=== PATIENT | female | born 1960 | race Caucasian/White ===

== ENCOUNTER 2016-11-20 11:51 | Inpatient (IN) | payer MEDICAID ==
[~2016-11-20] VITALS: Ht 149.9 cm; Wt 81.2 kg
[2016-11-20 13:24] LABS: BASOPHIL % 0.5 % (0-2)
[2016-11-20 13:25] LABS: PLATELET COUNT 422 x10^3mcL (130-400)
[2016-11-20 13:28] LABS: CALCIUM 8.7 mg/dL (8.5-10.1); CARBON DIOXIDE 26.9 mmol/L (21-32); CHLORIDE SERUM 103 mmol/L (98-107); CREATININE SERUM 0.6 mg/dL (0.6-1.0); GFR1 > 60 mL/min; GLUCOSE SERUM 151 mg/dL (74-106); POTASSIUM SERUM 3.5 mmol/L (3.5-5.1); SODIUM SERUM 140 mmol/L (136-145)
[2016-11-20 13:33] LABS: ALBUMIN 3.7 g/dL (3.4-5.0); ALKALINE PHOSPHATASE 128 U/L (46-116); ALT/SGPT 35 U/L (14-59); AST/SGOT 25 U/L (15-37); BILIRUBIN TOTAL 0.2 mg/dL (0.20-1.00); TOTAL PROTEIN, SERUM 8.1 g/dL (6.4-8.2)
[2016-11-20 15:45] LABS: CHOLESTEROL/HDL RATIO 3.5; MAGNESIUM 1.9 mg/dL (1.8-2.4); PHOSPHOROUS 3.8 mg/dL (2.5-4.9)
[2016-11-20] MEDS ORDERED: ENALAPRIL MALE2.5 MG (15:58)
[2016-11-20 16:49] VITALS: BP 155/71
[2016-11-20 16:55] VITALS: Ht 149.9 cm; Wt 81.2 kg
[2016-11-20 17:12] LABS: FREE T4 0.92 ng/dL (0.76-1.46); FREE THYROXINE INDEX 2.7 ug/dL (1.4-4.5); T4(THYROXINE) 8.4 ug/dL (4.7-13.3)
[2016-11-20 17:23] LABS: T3 TOTAL 1.27 ng/mL
[2016-11-20 18:46] LABS: microscopic required? NO
[2016-11-20 18:48] LABS: AMPHETAMINE QUAL UR NONE DETECTED (NEG <=1000)
[2016-11-20 18:51] LABS: urine erythrocyte NEGATIVE (NEGATIVE)
[2016-11-20 21:01] VITALS: BP 133/69
[2016-11-21 05:10] VITALS: BP 123/64
[2016-11-21 06:27] LABS: BASOPHIL % 0.5 % (0-2)
[2016-11-21 06:32] LABS: CALCIUM 8.5 mg/dL (8.5-10.1); CHLORIDE SERUM 105 mmol/L (98-107); CREATININE SERUM 0.6 mg/dL (0.6-1.0); GFR1 > 60 mL/min; GLUCOSE SERUM 105 mg/dL (74-106); MAGNESIUM 2.1 mg/dL (1.8-2.4); PHOSPHOROUS 3.8 mg/dL (2.5-4.9); POTASSIUM SERUM 3.7 mmol/L (3.5-5.1); SODIUM SERUM 140 mmol/L (136-145)
[2016-11-21 06:55] LABS: PLATELET COUNT 408 x10^3mcL (130-400); RED CELL DISTRIBUTION WIDTH 15.8 % (11.5-14.5)
[2016-11-21] MEDS ORDERED: NOR10T PO (08:47)
[2016-11-21 09:22] VITALS: BP 123/64
[2016-11-21 09:25] VITALS: BP 115/61
== END 2016-11-21 10:18 | disposition home or self-care (01) | DRG 532 ==
LOC: ED 11:51 → DU 15:58
PROVIDERS: Emergency Medicine; ADMIT Family Medicine
DX: D39.12 Neoplasm of uncertain behavior of left ovary (principal); E11.9 Type 2 diabetes mellitus without complications; E78.5 Hyperlipidemia, unspecified; Z68.26 Body mass index [BMI] 26.0-26.9, adult
CPT/HCPCS: 82962; 83880; 84439; J1170; J1885; J2270; J2405; J7030; J7042; Q0092